=== PATIENT | female | born 1980 | race Caucasian/White ===

== ENCOUNTER 2017-05-21 15:42 | Emergency (ER) | payer OTHER ==
--- NOTE | 2017-05-21 19:00 | UC ---
Tana Gupta Edward, scribed for Dayron Deluna MD on 05/21/17 at 1757 . Complaint Female HPI - HPI Summary HPI Summary: 36 y/o female presents to [facility] c/o white vaginal discharge and vaginal pain starting yesterday. The pain is rated at a 2/10 in severity at triage. Associated sx: chronic suprapubic tenderness s/p childbirth (this year). Denies ABD pain. Pt has not had these symptoms before. LNMP April 2016. Pt is currently breast feeding. - History Of Current Complaint Chief Complaint: UCGU Stated Complaint: WHITE DISCHARGE, AND VAGINAL PAIN Hx Obtained From: Patient Hx Last Menstrual Period: May 15, 2016 Onset/Duration: Lasting Days Pain Intensity: 2 Pain Scale Used: 0-10 Numeric Associated Signs And Symptoms: Positive: Vaginal Discharge - White - Allergies/Home Medications Allergies/Adverse Reactions: Allergies Allergy/AdvReac Type Severity Reaction Status Date / Time No Known Allergies Allergy Verified 05/21/17 15:53 Home Medications: Home Medications Levothyroxine TAB* [Synthroid 75 MCG TAB*] 1 cap PO DAILY 05/21/17 [History Confirmed 05/21/17] PMH/Surg Hx/FS Hx/Imm Hx Previously Healthy: No Endocrine History: Thyroid Disease, Hypothyroidism - Surgical History Surgical History: None - Family History Known Family History: Positive: Hypertension - Social History Lives: With Family Alcohol Use: None Substance Use Type: None Smoking Status (MU): Never Smoked Tobacco Review of Systems Constitutional: Negative Skin: Negative Eyes: Negative ENT: Negative Respiratory: Negative Cardiovascular: Negative Gastrointestinal: Abdominal Pain - mild suprapubic tenderness Genitourinary: Other - White vaginal discharge, vaginal pain Motor: Negative Neurovascular: Negative Musculoskeletal: Negative Neurological: Negative Psychological: Negative All Other Systems Reviewed And Are Negative: Yes Physical Exam Triage Information Reviewed: Yes Appearance: Well-Appearing, No Pain Distress Vital Signs: Initial Vital Signs Temp 97.7 F 05/21/17 15:49 Pulse 58 05/21/17 15:49 Resp 12 05/21/17 15:49 BP 109/54 05/21/17 15:49 Pulse Ox 99 05/21/17 15:49 Vital Signs Reviewed: Yes Eye Exam: Normal ENT Exam: Normal Neck: Positive: Supple, Nontender Respiratory: Positive: Lungs clear, Normal breath sounds Cardiovascular: Positive: RRR Abdomen Description: Positive: Nontender, Soft, Other: - PELVIC EXAM SHOWS NORMAL VAGINAL MUCOSA. POSITIVE WHITE DISCHARGE. NO TENDERNESS ON EXAM. NO PURULENT DISCHARGE. NO LESIONS. Bowel Sounds: Positive: Present Musculoskeletal Exam: Normal Musculoskeletal: Positive: Strength Intact, ROM Intact Neurological Exam: Normal Psychological: Positive: Age Appropriate Behavior Skin Exam: Normal, Other - Warm, dry, color reflects adequate perfusion Complaint Female Dx - Course Course Of Treatment: PAST MEDICATIONS REVIEWED ON VISIT. PATIENT DENIES C/O STI AND DECLINED TH GC/CHLAMYDIA TESTING. TREATING WITH DIFLUCAN 150MG PO ONCE WITH A REFILL TO REPEAT IN 3 DAYS IF NOT BETTER. PATIENT IS BREAST FEEDING AND DIFLUCAN IS SAFE IN . IF THE VAGINAL SWAB RESULTS COME BACK POSITIVE FOR GARDNERELLA, THE PATIENT WILL NEED TO BE TREATED WITH METROGEL VAGINAL AND NOT PO DUE TO THE BREAST FEEDING. UA NEGATIVE. URINE NEGATIVE. PT WILL BE D/C HOME. - Differential Dx/Diagnosis Provider Diagnoses: VAGINITIS Discharge - Discharge Plan Condition: Stable Disposition: HOME Prescriptions: Fluconazole 150 MG (NF) [Diflucan 150 mg (NF)] 150 mg PO ONCE #1 tab Patient Education Materials: Vaginitis (ED) Referrals: [facility] [Outside] Additional Instructions: FOLLOW UP WITH YOUR DOCTOR. YOU HAVE BEEN TREATED WITH DIFLUCAN 150MG ONCE FOR A POSSIBLE VAGINAL YEAST INFECTION. YOU CAN REPEAT THIS DOSE IN 3 DAYS IF NOT IMPROVED. THE RESULT OF THE VAGINAL SWAB FOR YEAST, BACTERIAL VAGINITIS AND TRICHOMONAS ARE ALL PENDING. IF ANY OF THESE ARE POSITIVE, YOU WILL NEED TO BE TREATED WITH A DIFFERENT MEDICATION. GET RECHECKED FOR ANY WORSENING OF YOUR CONDITION; PAIN, FEVER, YOU FEEL ILL OR QUESTIONS OR CONCERNS. The documentation as recorded by the Tana love Edward accurately reflects the service I personally performed and the decisions made by me, Dayron Deluna MD.
[2017-05-21 19:01] VITALS: BP 102/57
== END 2017-05-21 19:03 | disposition home or self-care (01) ==
LOC: UCEAST 15:42
DX: N76.0 Acute vaginitis (principal); E03.9 Hypothyroidism, unspecified
CPT/HCPCS: 81003; 84702; 87480; 87510; 87660; 87661; 99212; G0463